=== PATIENT | female | born 1975 | race Hispanic/Latino ===

== ENCOUNTER 2019-12-09 12:01 | Emergency (ER) | payer SELFPAY ==
[~2019-12-09] VITALS: Ht 152.4 cm; Wt 74.8 kg
--- NOTE | 2019-12-09 13:12 | NUR ---
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
--- NOTE | 2019-12-09 13:59 | Diagnostic Imaging Report ---
Left lower extremity venous Doppler evaluation Clinical History: Left lower extremity pain and swelling Discussion: Winters-scale, color Doppler, and spectral waveform analysis evaluations of the left lower extremity deep venous systems are obtained. The left common femoral, superficial femoral, popliteal, posterior tibial and peroneal veins are compressible and demonstrate normal venous waveforms. There is normal response to augmentation. Posterior and medial to the knee joint there is a ill-defined anechoic collection measuring up to 3.7 cm, likely related to a Armstrong's cyst. No internal vascularity is noted. Question mild 30 shadowing inferiorly. Impression: No sonographic evidence of deep venous thrombosis of the left lower lower extremity. 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 Trace dirty shadowing dependently could relate to debris or sequela of trauma. Signed by: Good Mello MD on 12/09/2019 1:56 PM
--- OUTSIDE RECORDS SUMMARY | 2019-12-23 15:37 | XMS REPORT | Continuity of Care Document ---
Author Author Manuel Alfaro [employer] | [employer] DELANEY Mcclelland [employer] Address Unknown Phone Unavailable Care Team Providers Care Electrician [employer] Name Role Phone [employer] Unavailable Un available Problems Problem Status Onset Date Classification Date Reported Comments Source Telangiectasia Active Problem 01/21/2018 [id number] 7055 Neurasthenia Active Problem 01/21/2018 [id number] Onychomycosis Active Problem 01/21/2018 [id number] Claustrophobia Active Problem 01/21/2018 2.16.840.1.110020.4.391.11.2 7055 Situational anxiety Active Problem 01/21/2018 2.16.840.1.424931.4.391.11.2 7055 Low HDL (under 40) Active Problem 01/21/2018 2.16.840.1.603212.4.391.11.2 7055 History of anemia Active Problem 01/21/2018 2.16.840.1.351783.4.391.11.2 7055 Anemia Active Problem 01/21/2018 2.16.840.1.245442.4.391.11.75875 Restless legs Active Problem 01/21/2018 2.16.840.1.561506.4.391.11.63058 Obesity (BMI 30.0-34.9) Active Problem 01/21/2018 2.16.840.1.501642.4.391.11.2 7055 Iron deficiency anemia, unspecified iron deficiency anemia type Active Diag nosis 01/21/2018 2.[id number] Varicose veins of both lower extremities Active Problem 01/21/2018 2.16.840.1.711312.4.391.11.08725 Medications Medication Details Route Status Patient Instructions Ordering Provider Order Date Source Sertraline HCl 1 tablet Orally Active 25 MG Orally Once a day Martinez 01/19/2018 2.16.840.1.090173.4.391.11.20235 Pantoprazole Sodium 1 tablet Orally Active 40 MG Orally QPM Martinez 03/14/2016 2.16.840.1.001190.4.391.11.47039 Lorazepam 1/2 - 1 tablet Orally Active 0.5 MG Orally once a da y prn anxiety Martinez 2.16.840.1.758994.4.391.11.03898 Allergies, Adverse Reactions, Alerts Substance Category Reaction Severity Reaction type Status Date Reported Comments Source N.K.D.A. Adverse Reaction Info Not Available Adverse Reaction Active 01/19/2018 2.16.840.1.707332.4.391.11.2 7055 Immunizations No Data Provided for This Section Results No Data Provided for This Section Pathology Reports No Data Provided for This Section Diagnostic Reports No Data Provided for This Section Consultation Notes No Data Provided for This Section Discharge Summaries No Data Provided for This Section History and Physicals No Data Provided for This Section Vital Signs Vital Sign Value Date Comments Source Weight 196.4 01/19/2018 2.16.840.1.899431.4.391.11.2 7055 Height 62 1 03/22/2017 2.16.840.1.185025.4.391.11.2 7055 Temperature Oral (F) 97.7 F 01/19/2018 2.16.840.1.287559.4.391.11.19531 Heart Rate 76 01/19/2018 2.16.840.1.779318.4.391.11.2 7055 Encounters No Data Provided for This Section Procedures No Data Provided for This Section Assessment and Plan No Data Provided for This Section Plan of Care No Data Provided for This Section Social History No Data Provided for This Section Family History No Data Provided for This Section Advance Directives No Data Provided for This Section Functional Status No Data Provided for This Section"
--- NOTE | 2019-12-30 00:21 | Emergency Department Note ---
History of Present Illnes History of Present Illness Chief Complaint: Extremity Trauma/Pain History of Present Illness This is a 44 year old female with 3 weeks of LLE knee pain and swelling. Denies recent trauma. Injured left knee 5 years ago (fell off mechanical bull) and 2 years ago (fell down stairs) and symptoms resolved. Had negative LLE knee MRI 2 years ago after falling down stairs. No numbness/tingling/weakness. Has been using solomon wrap, NSAID, and rest. Knee has been gradually improving in swelling size and pain. 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 Onset (how long ago): week(s) (3) Location: left knee Quality: dul Radiation: Reports non-radiation Severity: moderate Onset quality: gradual Duration (how long): week(s) (3) Timing of current episode: constant Progression: improving Chronicity: new Context: Denies recent illness Relieving factors: rest Exacerbating factors: other (weight bearing) Associated symptoms: Denies chest pain, Denies cough, Denies malaise, Denies nausea/vomiting, Denies shortness of breath Treatments prior to arrival: NSAID Risk factors: no hormones, OCP, No smoking, no recent surgery, no travel, immobilization Past Medical/Family History Physician Review I have reviewed the patient's past medical and family history. Any updates have been documented here. Past Medical History Recent Fever: No Clinical Suspicion of Infectio: No New/Unexplained Change in Ment: No Social History Smoking Cessation: Never Smoker TB Exposure/Symptoms: No Review of Systems Review of Systems Constitutional: Denies chills, Denies fever EENTM: Denies nose congestion, Denies throat pain Cardiovascular: Denies chest pain Respiratory: Denies cough, Denies dyspnea Gastrointestinal: Denies diarrhea Genitourinary: Denies dysuria Musculoskeletal: Reports no symptoms, Reports joint pain Integumentary: Denies rash Psychological: Denies anxiety Endocrine: Denies increased urination Hematological/Lymphatic: Denies swollen glands Physical Exam Related Data Allergies: Coded Allergies: No Known Allergies (Unverified , 12/09/19) Vital signs reviewed: Yes Physical Exam CONSTITUTIONAL Constitutional: Present well-developed, Present well-nourished HENT HENT: Present normocephalic, Present atraumatic, Present oropharynx clear/moist, Present nose normal HENT L/R: Present left ext ear normal, Present right ext ear normal EYES Eyes: Reports PERRL, Reports conjunctivae normal NECK Neck: Present ROM normal PULMONARY Pulmonary: Present effort normal, Present breath sounds normal CARDIOVASCULAR Cardiovascular: Present regular rhythm, Present heart sounds normal, Present capillary refill normal, Present normal rate GASTROINTESTINAL Abdominal: Present soft, Present nontender, Present bowel sounds normal GENITOURINARY SKIN Skin: Present warm, Present dry MUSCULOSKELETAL Musculoskeletal: Present ROM normal, Present tenderness, Present swelling, Present other (Left knee with mild diffuese swelling and tenderness. No medial/lateral laxity, no anterior or posterior drawer sign. Sensation intact over entire left leg. Strength 5/5 and equal bilatterally. +2 DP pulse. Ambulatory with slight limp to gait favoring LLE.); Absent edema, Absent deformity NEUROLOGICAL Neurological: Present alert, Present oriented x 3, Present no gross motor or sensory deficits PSYCHOLOGICAL Psychological: Present mood/affect normal, Present judgement normal Results Imaging Imaging Comments Left lower extremity venous Doppler evaluation Clinical History: Left lower extremity pain and swelling Discussion: Winters-scale, color Doppler, and spectral waveform analysis evaluations of the left lower extremity deep venous systems are obtained. The left common femoral, superficial femoral, popliteal, posterior tibial and peroneal veins are compressible and demonstrate normal venous waveforms. There is normal response to augmentation. Posterior and medial to the knee joint there is a ill-defined anechoic collection measuring up to 3.7 cm, likely related to a Armstrong's cyst. No internal vascularity is noted. Question mild 30 shadowing inferiorly. Impression: No sonographic evidence of deep venous thrombosis of the left lower lower extremity. 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 Trace dirty shadowing dependently could relate to debris or sequela of trauma. Signed by: Good Mello MD on 12/09/2019 1:56 PM Assessment & Plan Medical Decision Making MDM Wil[place] ultrasound performed to r/o DVT. US showed likely Armstrong's cyst. Patient's symptoms have gradually been improving. Patient to Continue RICE and f/u PC next week. If symptoms do not resolve patient to discuss with her doctor need for potential MRI of knee. Reassessment Reassessment Better after toradol Assessment & Plan Final Impression: (1) Armstrong cyst (2) Lower extremity pain (3) Knee pain Depart Disposition: HOME, SELF-CARE MARLON SHEEHAN MD Dec 09, 2019 12:32
== END 2019-12-09 14:46 | disposition home or self-care (01) ==
LOC: FSED 12:11
DX: M25.562 Pain in left knee (principal); M79.662 Pain in left lower leg; M71.22 Synovial cyst of popliteal space [Baker], left knee; M79.89 Other specified soft tissue disorders
CPT/HCPCS: 93971; 99283